=== PATIENT | female | born 1970 | race Caucasian/White ===

== ENCOUNTER 2018-04-21 09:04 | Outpatient (CLI) | payer MEDICARE, MEDICAID ==
[~2018-04-21 09:04] MED LIST: ATEN25TA PO; CLON-527 PO; CLOT15CR74 TP; DIPH-423 PO; FAMO-128 PO; LISI-600 PO
[2018-04-21] MEDS ORDERED: BARIUM SULFATE/METHYLCELLULOSE 600 ML SUSPENSION BOTTLE**DONT ENTER PO ONE (09:38)
== END 2018-04-21 23:59 | disposition home or self-care (01) ==
LOC: RAD 09:04
PROVIDERS: ATTEND Obstetrics & Gynecology Obstetrics
DX: K59.00 Constipation, unspecified (principal); F17.210 Nicotine dependence, cigarettes, uncomplicated; J45.909 Unspecified asthma, uncomplicated
CPT/HCPCS: 74250

== ENCOUNTER 2018-06-10 00:02 | Emergency (ER) | payer MEDICARE, MEDICAID ==
[~2018-06-10] VITALS: Ht 165.1 cm; Wt 113.6 kg
[2018-06-10] MEDS ORDERED: glucagon, human recombinant 1mg kit IV ONE (00:25)
[2018-06-10] MEDS ORDERED: famotidine/PF 10 mg/ml inj IV ONE (00:25)
[2018-06-10 00:51] LABS: HEMATOCRIT 38.7 % (35.0-45.0); HEMOGLOBIN 12.6 g/dl (12.0-16.0); RED BLOOD COUNT 5.33 X10'6 (4.20-5.60); WHITE BLOOD COUNT 9.8 X10'3 (4.5-11.0)
[2018-06-10 00:52] LABS: EOSINOPHILS % (AUTO) 4.6 % (0-6); LYMPHOCYTES % (AUTO) 23.8 % (21-51); MEAN CORPUSCULAR HEMOGLOBIN 23.6 PG (27.0-31.0); MEAN CORPUSCULAR HGB CONC 32.5 % (33.0-36.5); MEAN CORPUSCULAR VOLUME 72.6 FL (78-98); MEAN PLATELET VOLUME 9.6 FL (7.4-10.4); MONOCYTES % (AUTO) 7.4 % (2-12); NEUTROPHILS % (AUTO) 63.7 % (42-75); PLATELET COUNT 243 X10'3 (140-440)
[2018-06-10 00:53] LABS: BASOPHILS % (AUTO) 0.5 % (0-1); EOSINOPHILS # (AUTO) 0.5 X10'3 (0-0.9); LYMPHOCYTES # (AUTO) 2.3 X10'3 (1.1-4.8); MONOCYTES # (AUTO) 0.7 X10'3 (0-0.9); NEUTROPHILS # (AUTO) 6.3 X10'3 (1.8-7.7)
[2018-06-10 00:55] LABS: INR 0.9 INR; PARTIAL THROMBOPLASTIN TIME 27 SECONDS (22-32); PROTHROMBIN TIME 9.3 SECONDS (9.0-12.0)
[2018-06-10 00:57] LABS: ALANINE AMINOTRANSFERASE 38 U/L (12-78); ALBUMIN 3.2 G/DL (3.4-5.0); ALBUMIN/GLOBULIN RATIO 0.9 (1.1-1.5); ALKALINE PHOSPHATASE 98 IU/L (46-116); ANION GAP 9 (8-16); ASPARTATE AMINO TRANSFERASE 23 U/L (10-37); BILIRUBIN,TOTAL 0.1 MG/DL (0.1-1.0); BLOOD UREA NITROGEN 17 MG/DL (7-18); BUN/CREATININE RATIO 22.4 (6.6-38.0); CALCIUM 8.1 MG/DL (8.5-10.1); CHLORIDE 103 MMOL/L (99-107); CREATININE 0.76 MG/DL (0.40-0.90); GLUCOSE 180 MG/DL (70-104); POTASSIUM 3.9 MMOL/L (3.5-5.1); SODIUM 140 MMOL/L (135-145); TOTAL CARBON DIOXIDE 28.3 MMOL/L (24-32); TOTAL PROTEIN 6.8 G/DL (6.4-8.2); eGFR 81 ML/MIN
[2018-06-10 03:40] VITALS: BP 139/92
[2018-06-10] MEDS ORDERED: LIDOcaine Viscous 15ml cup ONE (03:49)
[2018-06-10] MEDS ORDERED: MIDAZolam 5mg/5ml vial ONE (03:49)
[2018-06-10] MEDS ORDERED: fentaNYL/PF 50MCG/1 ML 2ML syringe ONE (03:49)
[2018-06-10 04:12] VITALS: BP 127/64
[2018-06-10 04:22] VITALS: BP 112/59
[2018-06-10 04:32] VITALS: BP 138/79
[2018-06-10 04:42] VITALS: BP 151/84
[2018-06-10 05:26] VITALS: BP 148/94
== END 2018-06-10 05:28 | disposition home or self-care (01) ==
LOC: ER 00:02
DX: T18.128A Food in esophagus causing other injury, initial encounter (principal); I10 Essential (primary) hypertension; J45.909 Unspecified asthma, uncomplicated; G89.29 Other chronic pain; Z90.49 Acquired absence of other specified parts of digestive tract; Z98.890 Other specified postprocedural states; Z88.1 Allergy status to other antibiotic agents; Z79.899 Other long term (current) drug therapy; Y92.9 Unspecified place or not applicable
CPT/HCPCS: 36415; 43239; 43247; 43248; 71045; 80053; 85025; 85610; 85730; 93005; 96374; 96375; 99152; 99285; J1610; J2250; J3010; J3490; J7030; 88305; A4620

== ENCOUNTER 2019-02-21 11:58 | Emergency (ER) | payer MEDICARE, MEDICAID ==
[~2019-02-21] VITALS: Ht 165.1 cm; Wt 104.5 kg
[2019-02-21 12:00] VITALS: BP 175/90
== END 2019-02-21 13:59 | disposition home or self-care (01) ==
LOC: ER 11:58
DX: M79.89 Other specified soft tissue disorders (principal); Z46.89 Encounter for fitting and adjustment of other specified devices; I10 Essential (primary) hypertension; J45.909 Unspecified asthma, uncomplicated; F41.9 Anxiety disorder, unspecified; Z86.14 Personal history of Methicillin resistant Staphylococcus aureus infection; Z90.49 Acquired absence of other specified parts of digestive tract; Z98.890 Other specified postprocedural states; Z79.899 Other long term (current) drug therapy
CPT/HCPCS: 99281

== ENCOUNTER 2019-09-03 18:32 | Emergency (ER) | payer MEDICARE, MEDICAID ==
[~2019-09-03] VITALS: Ht 165.1 cm; Wt 125.0 kg
[2019-09-03 20:08] LABS: BASOPHILS % (AUTO) 0.5 % (0-1); EOSINOPHILS # (AUTO) 0.4 X10'3 (0-0.9); EOSINOPHILS % (AUTO) 3.9 % (0-6); HEMOGLOBIN 14.4 g/dl (12.0-16.0); LYMPHOCYTES # (AUTO) 1.4 X10'3 (1.1-4.8); LYMPHOCYTES % (AUTO) 15.6 % (21-51); MEAN CORPUSCULAR HGB CONC 33.4 g/dL (33.0-36.5); MEAN CORPUSCULAR VOLUME 80.9 FL (78-98); MEAN PLATELET VOLUME 9.1 FL (7.4-10.4); MONOCYTES # (AUTO) 0.6 X10'3 (0-0.9); MONOCYTES % (AUTO) 6.7 % (2-12); NEUTROPHILS # (AUTO) 6.7 X10'3 (1.8-7.7); NEUTROPHILS % (AUTO) 73.3 % (42-75); PLATELET COUNT 195 X10'3 (140-440); RED BLOOD COUNT 5.32 X10'6 (4.20-5.60); RED CELL DISTRIBUTION WIDTH 14.7 % (11.5-14.5); WHITE BLOOD COUNT 9.1 X10'3 (4.5-11.0)
[2019-09-03 20:11] LABS: ALANINE AMINOTRANSFERASE 88 U/L (12-78); ALBUMIN 3.2 G/DL (3.4-5.0); ALKALINE PHOSPHATASE 106 IU/L (46-116); ANION GAP 5 (8-16); ASPARTATE AMINO TRANSFERASE 45 U/L (10-37); BILIRUBIN,TOTAL 0.3 MG/DL (0.1-1.0); BLOOD UREA NITROGEN 19 MG/DL (7-18); BUN/CREATININE RATIO 21.3 (6.6-38.0); CALCIUM 8.7 MG/DL (8.5-10.1); CHLORIDE 109 MMOL/L (99-107); CREATININE 0.89 MG/DL (0.40-0.90); GLUCOSE 147 MG/DL (70-104); POTASSIUM 3.9 MMOL/L (3.5-5.1); SODIUM 144 MMOL/L (135-145); TOTAL CARBON DIOXIDE 29.9 MMOL/L (24-32); TOTAL PROTEIN 6.5 G/DL (6.4-8.2); eGFR 67 ML/MIN
[2019-09-03 20:49] VITALS: BP 143/87
== END 2019-09-03 20:50 | disposition home or self-care (01) ==
LOC: ER 18:33
DX: R07.9 Chest pain, unspecified (principal); R06.02 Shortness of breath; R42 Dizziness and giddiness; I10 Essential (primary) hypertension; J45.909 Unspecified asthma, uncomplicated; F41.9 Anxiety disorder, unspecified; Z90.89 Acquired absence of other organs; Z98.890 Other specified postprocedural states; Z79.2 Long term (current) use of antibiotics; Z79.899 Other long term (current) drug therapy
CPT/HCPCS: 36415; 71045; 80053; 84484; 85025; 93005; 99285

== ENCOUNTER 2021-05-14 15:47 | Emergency (ER) | payer MEDICARE, MEDICAID ==
[~2021-05-14] VITALS: Ht 165.1 cm; Wt 128.4 kg
[~2021-05-14 15:47] MED LIST changes: -LISI-600 PO; +LISI20TA28 PO
[2021-05-14 16:55] VITALS: BP 195/80
[2021-05-14 17:28] LABS: BASOPHILS % (AUTO) 0.5 % (0-1); EOSINOPHILS # (AUTO) 0.5 X10'3 (0-0.9); EOSINOPHILS % (AUTO) 5.8 % (0-6); HEMATOCRIT 43.1 % (35.0-45.0); HEMOGLOBIN 14.5 g/dl (12.0-16.0); LYMPHOCYTES % (AUTO) 22.3 % (21-51); MEAN CORPUSCULAR HEMOGLOBIN 26.8 PG (27.0-31.0); MEAN CORPUSCULAR HGB CONC 33.5 g/dL (33.0-36.5); MEAN CORPUSCULAR VOLUME 79.9 FL (78-98); MEAN PLATELET VOLUME 8.6 FL (7.4-10.4); MONOCYTES # (AUTO) 0.6 X10'3 (0-0.9); MONOCYTES % (AUTO) 6.6 % (2-12); NEUTROPHILS # (AUTO) 5.7 X10'3 (1.8-7.7); NEUTROPHILS % (AUTO) 64.8 % (42-75); PLATELET COUNT 216 X10'3 (140-440); RED CELL DISTRIBUTION WIDTH 15.2 % (11.5-14.5); WHITE BLOOD COUNT 8.8 X10'3 (4.5-11.0)
[2021-05-14 17:39] LABS: ALANINE AMINOTRANSFERASE 130 U/L (12-78); ALBUMIN 3.4 G/DL (3.4-5.0); ALBUMIN/GLOBULIN RATIO 0.9 (1.1-1.5); ALKALINE PHOSPHATASE 92 IU/L (46-116); ANION GAP 10 (8-16); ASPARTATE AMINO TRANSFERASE 54 U/L (10-37); BILIRUBIN,TOTAL 0.3 MG/DL (0.1-1.0); BLOOD UREA NITROGEN 11 MG/DL (7-18); BUN/CREATININE RATIO 15.3 (6.6-38.0); CALCIUM 8.6 MG/DL (8.5-10.1); CHLORIDE 104 MMOL/L (99-107); CREATININE 0.72 MG/DL (0.40-0.90); GLUCOSE 120 MG/DL (70-104); POTASSIUM 4.1 MMOL/L (3.5-5.1); SODIUM 142 MMOL/L (135-145); TOTAL CARBON DIOXIDE 27.6 MMOL/L (24-32); TOTAL PROTEIN 7.2 G/DL (6.4-8.2); eGFR 85 ML/MIN
== END 2021-05-14 22:00 | disposition left against medical advice (07) ==
LOC: ER 15:48
DX: I10 Essential (primary) hypertension (principal); R42 Dizziness and giddiness; R07.89 Other chest pain; R51.9 Headache, unspecified; J45.909 Unspecified asthma, uncomplicated; G89.29 Other chronic pain; F41.9 Anxiety disorder, unspecified; Z86.14 Personal history of Methicillin resistant Staphylococcus aureus infection; Z90.89 Acquired absence of other organs; Z98.890 Other specified postprocedural states; Z88.1 Allergy status to other antibiotic agents; Z79.2 Long term (current) use of antibiotics; Z79.899 Other long term (current) drug therapy
CPT/HCPCS: 36415; 71045; 80053; 83880; 84484; 85025; 93005; 99285

== ENCOUNTER 2022-06-17 03:11 | Emergency (ER) | payer MEDICARE, MEDICAID ==
[~2022-06-17] VITALS: Ht 165.1 cm; Wt 88.6 kg
[2022-06-17 03:25] VITALS: BP 162/105
[2022-06-17 03:46] LABS: BASOPHILS % (AUTO) 0.3 % (0-1); EOSINOPHILS % (AUTO) 0 % (0-6); HEMATOCRIT 50.8 % (35.0-45.0); HEMOGLOBIN 16.3 g/dl (12.0-16.0); LYMPHOCYTES # (AUTO) 0.5 X10'3 (1.1-4.8); LYMPHOCYTES % (AUTO) 9.7 % (21-51); MEAN CORPUSCULAR HEMOGLOBIN 26.6 PG (27.0-31.0); MEAN CORPUSCULAR HGB CONC 32.2 g/dL (33.0-36.5); MEAN CORPUSCULAR VOLUME 82.6 FL (78-98); MEAN PLATELET VOLUME 10.4 FL (7.4-10.4); MONOCYTES # (AUTO) 0.1 X10'3 (0-0.9); MONOCYTES % (AUTO) 2.4 % (2-12); NEUTROPHILS # (AUTO) 4.1 X10'3 (1.8-7.7); NEUTROPHILS % (AUTO) 87.6 % (42-75); PLATELET COUNT 166 X10'3 (140-440); RED BLOOD COUNT 6.14 X10'6 (4.20-5.60); RED CELL DISTRIBUTION WIDTH 15.2 % (11.5-14.5); WHITE BLOOD COUNT 4.7 X10'3 (4.5-11.0)
[2022-06-17 03:59] LABS: ALANINE AMINOTRANSFERASE 28 U/L (12-78); ALBUMIN 3.9 G/DL (3.4-5.0); ALKALINE PHOSPHATASE 96 IU/L (46-116); ANION GAP 13 (8-16); ASPARTATE AMINO TRANSFERASE 19 U/L (10-37); BILIRUBIN,TOTAL 0.4 MG/DL (0.1-1.0); BLOOD UREA NITROGEN 8 MG/DL (7-18); CALCIUM 9.4 MG/DL (8.5-10.1); CHLORIDE 103 MMOL/L (99-107); CREATININE 0.73 MG/DL (0.40-0.90); GLUCOSE 167 MG/DL (70-104); MAGNESIUM 1.9 MG/DL (1.5-2.4); POTASSIUM 3.9 MMOL/L (3.5-5.1); SODIUM 141 MMOL/L (135-145); TOTAL CARBON DIOXIDE 24.8 MMOL/L (24-32); TOTAL PROTEIN 7.8 G/DL (6.4-8.2); eGFR 84 ML/MIN
[2022-06-17] MEDS ORDERED: benzonatate 100mg capsule PO ONE (04:40)
[2022-06-17] MEDS ORDERED: ketorolac trometh inj. 60 MG/2 ML VIAL IM ONE (04:40)
[2022-06-17] MEDS ORDERED: ondansetron 4mg rapidly disintigrating tab PO ONE (04:40)
[2022-06-17] MEDS ORDERED: GUAI120L55 PO (05:17)
[2022-06-17] MEDS ORDERED: BENZ-38 PO (05:17)
== END 2022-06-17 05:31 | disposition home or self-care (01) ==
LOC: ER 03:12
DX: B34.9 Viral infection, unspecified (principal); Z20.822 Contact with and (suspected) exposure to COVID-19; I10 Essential (primary) hypertension; J45.909 Unspecified asthma, uncomplicated; G89.29 Other chronic pain; Z91.041 Radiographic dye allergy status
CPT/HCPCS: 36415; 71045; 80053; 83735; 83880; 84484; 85025; 87502; 87503; 87635; 93005; 96372; 99285; C9803; J1885

== ENCOUNTER 2022-09-24 15:54 | Emergency (ER) | payer MEDICARE, MEDICAID ==
[~2022-09-24] VITALS: Ht 165.1 cm; Wt 83.0 kg
[~2022-09-24 15:54] MED LIST changes: +GUAI120L55 PO
[2022-09-24 16:55] LABS: BASOPHILS # (AUTO) 0.1 X10'3 (0-0.2); BASOPHILS % (AUTO) 0.6 % (0-1); EOSINOPHILS # (AUTO) 0.3 X10'3 (0-0.9); EOSINOPHILS % (AUTO) 3.4 % (0-6); HEMATOCRIT 49.8 % (35.0-45.0); HEMOGLOBIN 16.7 g/dl (12.0-16.0); LYMPHOCYTES % (AUTO) 33.3 % (21-51); MEAN CORPUSCULAR HEMOGLOBIN 28.8 PG (27.0-31.0); MEAN CORPUSCULAR HGB CONC 33.6 g/dL (33.0-36.5); MEAN CORPUSCULAR VOLUME 85.6 FL (78-98); MEAN PLATELET VOLUME 8.9 FL (7.4-10.4); MONOCYTES # (AUTO) 0.6 X10'3 (0-0.9); MONOCYTES % (AUTO) 6.7 % (2-12); NEUTROPHILS # (AUTO) 5.1 X10'3 (1.8-7.7); PLATELET COUNT 201 X10'3 (140-440); RED BLOOD COUNT 5.81 X10'6 (4.20-5.60); RED CELL DISTRIBUTION WIDTH 15.1 % (11.5-14.5); WHITE BLOOD COUNT 9.2 X10'3 (4.5-11.0)
[2022-09-24 17:15] LABS: ALANINE AMINOTRANSFERASE 79 U/L (12-78); ALBUMIN 3.5 G/DL (3.4-5.0); ALKALINE PHOSPHATASE 106 IU/L (46-116); ANION GAP 12 (8-16); ASPARTATE AMINO TRANSFERASE 76 U/L (10-37); BILIRUBIN,TOTAL 0.4 MG/DL (0.1-1.0); BLOOD UREA NITROGEN 12 MG/DL (7-18); BUN/CREATININE RATIO 21.4 (10.0-20.0); CALCIUM 8.7 MG/DL (8.5-10.1); CHLORIDE 107 MMOL/L (99-107); CREATININE 0.56 MG/DL (0.40-0.90); ETHANOL 0.196 GM/DL (0.0-0.010); GLUCOSE 92 MG/DL (70-104); POTASSIUM 3.4 MMOL/L (3.5-5.1); SODIUM 144 MMOL/L (135-145); TOTAL CARBON DIOXIDE 25.2 MMOL/L (24-32); eGFR > 90 ML/MIN
[2022-09-24] MEDS ORDERED: ondansetron 4mg rapidly disintigrating tab PO ONE (19:40)
[2022-09-24 20:14] LABS: URINE HCG NEGATIVE (NEG)
[2022-09-24 20:15] LABS: CLARITY,URINE CLEAR (Clear); COLOR,URINE YELLOW (Yellow); GLUCOSE, URINE NEGATIVE (Neg); KETONES,URINE NEGATIVE (Neg); LEUKOCYTE ESTERASE ,URINE NEGATIVE (Neg); NITRITES, URINE NEGATIVE (Neg); OCCULT BLOOD,URINE NEGATIVE (Neg); PH,URINE 5.5 (4.8-8.0); PROTEIN,URINE NEGATIVE (Neg); UROBILINOGEN,URINE 0.2 E.U/dL (0.2-1.0)
[2022-09-24 20:23] LABS: UA COLLECTION TYPE CLN CATCH MIDSTREAM
[2022-09-24] MEDS ORDERED: LORazepam 2 mg/ml vial IM ONE (20:45)
[2022-09-24] MEDS ORDERED: haloperidol lactate 5mg/ml inj IM ONE (20:45)
[2022-09-24] MEDS ORDERED: diphenhydrAMINE 50 mg/ml inj IM ONE (20:45)
--- NOTE | 2022-09-24 20:45 | NUR ---
pt tried to leave er dept. pt escorted back to room by staff. informed
[2022-09-24 20:48] LABS: URINE AMPHETAMINE SCREEN NEGATIVE (Neg); URINE BARBITUATE SCREEN NEGATIVE (Neg); URINE BENZODIAZEPINES SCREEN POSITIVE (Neg); URINE CANNABINOID SCREEN POSITIVE (Neg); URINE COCAINE SCREEN NEGATIVE (Neg); URINE METHADONE SCREEN NEGATIVE (Neg); URINE OPIATE SCREEN NEGATIVE (Neg); URINE PHENCYCLIDINE SCREEN NEGATIVE (Neg)
--- NOTE | 2022-09-24 21:25 | NUR ---
im given. pt stated she will stay and listen to staff and md.
--- NOTE | 2022-09-24 22:19 | NUR ---
Received report from Melecio JUÁREZ. Patient coming back to ED overflow.
--- NOTE | 2022-09-24 22:35 | NUR ---
Patient arrived to bed-25 at this time. Collected patient belongings and placed in secured locker.
[2022-09-24] MEDS ORDERED: ALPR2TAB2 PO (22:46)
[2022-09-24] MEDS ORDERED: ALPR2TAB7 PO (22:47)
[2022-09-24] MEDS ORDERED: ALPRAZolam 0.5mg tablet PO PRN (23:00)
[2022-09-25 05:50] VITALS: BP 143/72
--- NOTE | 2022-09-25 06:03 | NUR ---
records to [facility]
--- NOTE | 2022-09-25 06:30 | NUR ---
Received pt resting on her back, heart rate rechecked and was 56. No acute distress.
--- NOTE | 2022-09-25 09:02 | NUR ---
Pt resting with eyes closed on backside, noted rise and fall of chest.
--- NOTE | 2022-09-25 10:40 | NUR ---
Dequan MORALEZ, evaluating patient. No distress observed. Continue to monitor.
--- NOTE | 2022-09-25 11:16 | NUR ---
Met with patient in regards to alcohol use and to see if patient was interested in resources for treatment options. Patient is interested. Patient would like to start meds to help with cravings. I gave patient a card for [facility] and my card to call me if she has any questions.
--- NOTE | 2022-09-25 12:14 | NUR ---
PRN xanax administered at 1115am for c/o anxiety. Pt resting with eyes closed, noted rise and fall of chest.
== END 2022-09-25 13:13 | disposition home or self-care (01) ==
LOC: ER 15:56
DX: R45.851 Suicidal ideations (principal); Z20.822 Contact with and (suspected) exposure to COVID-19; F10.929 Alcohol use, unspecified with intoxication, unspecified; I10 Essential (primary) hypertension; J45.909 Unspecified asthma, uncomplicated; F41.9 Anxiety disorder, unspecified; Z86.14 Personal history of Methicillin resistant Staphylococcus aureus infection; Z88.1 Allergy status to other antibiotic agents; Z79.899 Other long term (current) drug therapy; Z79.1 Long term (current) use of non-steroidal anti-inflammatories (NSAID); Z79.2 Long term (current) use of antibiotics
CPT/HCPCS: 36415; 80053; 80305; 80320; 81003; 81025; 85025; 87811; 96372; 99285; J1200; J1630; J2060

== ENCOUNTER 2022-10-14 11:10 | Emergency (ER) | payer MEDICARE, MEDICAID ==
[~2022-10-14] VITALS: Ht 163.8 cm; Wt 187.0 kg
[~2022-10-14 11:10] MED LIST changes: +ALPR2TAB7 PO; -ATEN25TA PO; -CLON-527 PO; -CLOT15CR74 TP; -DIPH-423 PO; -FAMO-128 PO; -GUAI120L55 PO; -LISI20TA28 PO
[2022-10-14] MEDS ORDERED: LORazepam 1 MG tablet PO ONE (11:20)
[2022-10-14 11:44] LABS: BASOPHILS % (AUTO) 0.6 % (0-1); EOSINOPHILS # (AUTO) 0.3 X10'3 (0-0.9); EOSINOPHILS % (AUTO) 3.9 % (0-6); HEMATOCRIT 46.3 % (35.0-45.0); HEMOGLOBIN 15.5 g/dl (12.0-16.0); LYMPHOCYTES # (AUTO) 1.7 X10'3 (1.1-4.8); LYMPHOCYTES % (AUTO) 21.9 % (21-51); MEAN CORPUSCULAR HEMOGLOBIN 28.8 PG (27.0-31.0); MEAN CORPUSCULAR HGB CONC 33.5 g/dL (33.0-36.5); MEAN CORPUSCULAR VOLUME 85.8 FL (78-98); MEAN PLATELET VOLUME 8.3 FL (7.4-10.4); MONOCYTES # (AUTO) 0.6 X10'3 (0-0.9); MONOCYTES % (AUTO) 7.4 % (2-12); NEUTROPHILS # (AUTO) 5.2 X10'3 (1.8-7.7); NEUTROPHILS % (AUTO) 66.2 % (42-75); PLATELET COUNT 184 X10'3 (140-440); RED BLOOD COUNT 5.39 X10'6 (4.20-5.60); RED CELL DISTRIBUTION WIDTH 15.9 % (11.5-14.5); WHITE BLOOD COUNT 7.9 X10'3 (4.5-11.0)
[2022-10-14 11:59] LABS: ALANINE AMINOTRANSFERASE 51 U/L (12-78); ALBUMIN 3.2 G/DL (3.4-5.0); ALKALINE PHOSPHATASE 99 IU/L (46-116); ANION GAP 10 (8-16); ASPARTATE AMINO TRANSFERASE 41 U/L (10-37); BILIRUBIN,TOTAL 0.6 MG/DL (0.1-1.0); BLOOD UREA NITROGEN 19 MG/DL (7-18); BUN/CREATININE RATIO 30.2 (10.0-20.0); CALCIUM 8.5 MG/DL (8.5-10.1); CHLORIDE 104 MMOL/L (99-107); CREATININE 0.63 MG/DL (0.40-0.90); GLUCOSE 109 MG/DL (70-104); POTASSIUM 4.1 MMOL/L (3.5-5.1); SODIUM 142 MMOL/L (135-145); TOTAL CARBON DIOXIDE 28.3 MMOL/L (24-32); TOTAL PROTEIN 6.5 G/DL (6.4-8.2); eGFR > 90 ML/MIN
[2022-10-14 12:13] VITALS: BP 160/74
[2022-10-14] MEDS ORDERED: CITA20TA28 PO (13:38)
[2022-10-14] MEDS ORDERED: CHLO25CA10 PO (13:38)
--- NOTE | 2022-10-14 13:52 | NUR ---
Received order for consult. Met with patient in regards to alcohol use and to see if patient was interested in resources for treatment options. Patient is interested in medication to help her with withdrawls and with cravings. Dr Hall is giving patient meds to help with withdrawls and I gave her a card for [facility] for meds for cravings. I gave her my card to contact me with any questions.
== END 2022-10-14 14:01 | disposition home or self-care (01) ==
LOC: ER 11:11
DX: R07.89 Other chest pain (principal); I10 Essential (primary) hypertension; J45.909 Unspecified asthma, uncomplicated; G89.29 Other chronic pain; F10.239 Alcohol dependence with withdrawal, unspecified; F41.9 Anxiety disorder, unspecified; F32.9 Major depressive disorder, single episode, unspecified; Z86.14 Personal history of Methicillin resistant Staphylococcus aureus infection; Z90.89 Acquired absence of other organs; Z98.890 Other specified postprocedural states; Z72.89 Other problems related to lifestyle; Z88.1 Allergy status to other antibiotic agents; Z79.899 Other long term (current) drug therapy; Y90.0 Blood alcohol level of less than 20 mg/100 ml
CPT/HCPCS: 36415; 80053; 83880; 84484; 85025; 93005; 99284

== ENCOUNTER 2022-10-21 12:20 | Emergency (ER) | payer MEDICARE, MEDICAID ==
[~2022-10-21 12:20] MED LIST changes: +CHLO25CA10 PO; +CITA20TA28 PO
--- NOTE | 2022-10-22 11:17 | NUR ---
Met with patient in the lobby after she talked to Jessica'isabel Quick. Patient already had medications prescribed by Dr Hall so she decided to go home and continue her alcohol withdrawal there and if she is having a hard time she will come back. Patient has an appt set with Jason Quick to start Naltrexone after detox.
== END 2022-10-21 13:34 | disposition left against medical advice (07) ==
LOC: ER 12:21
DX: F10.239 Alcohol dependence with withdrawal, unspecified (principal); Z53.21 Procedure and treatment not carried out due to patient leaving prior to being seen by health care provider; Y90.9 Presence of alcohol in blood, level not specified

== ENCOUNTER 2022-11-14 16:10 | Emergency (ER) | payer MEDICARE, MEDICAID | END 2022-11-14 18:51 | disposition left against medical advice (07) | LOC: ER 16:11 | DX: F10.129 Alcohol abuse with intoxication, unspecified (principal); Z53.21 Procedure and treatment not carried out due to patient leaving prior to being seen by health care provider; Y90.9 Presence of alcohol in blood, level not specified ==

== ENCOUNTER 2022-11-17 17:40 | Emergency (ER) | payer MEDICARE, MEDICAID ==
[~2022-11-17] VITALS: Ht 163.8 cm; Wt 86.8 kg
[~2022-11-17 17:40] MED LIST changes: -CITA20TA28 PO
[2022-11-17 17:48] VITALS: BP 139/67
[2022-11-17] MEDS ORDERED: ONDA4TAB12 PO (20:42)
[2022-11-17] MEDS ORDERED: GABA300C PO (20:42)
[2022-11-17] MEDS ORDERED: ondansetron 4mg rapidly disintigrating tab PO ONE (20:45)
--- NOTE | 2022-11-18 07:53 | NUR ---
Received order for consult. Tried to call patient to follow up. No answer and voicemail full.
== END 2022-11-17 20:54 | disposition home or self-care (01) ==
LOC: ER 17:41
DX: F10.129 Alcohol abuse with intoxication, unspecified (principal); I10 Essential (primary) hypertension; J45.909 Unspecified asthma, uncomplicated; F41.9 Anxiety disorder, unspecified; Z86.14 Personal history of Methicillin resistant Staphylococcus aureus infection; Z88.1 Allergy status to other antibiotic agents; Z79.899 Other long term (current) drug therapy; Y90.9 Presence of alcohol in blood, level not specified
CPT/HCPCS: 99283

== ENCOUNTER 2022-12-06 13:33 | Emergency (ER) | payer MEDICARE, MEDICAID ==
[~2022-12-06] VITALS: Ht 170.2 cm; Wt 88.2 kg
[~2022-12-06 13:33] MED LIST changes: +GABA300C PO; +ONDA4TAB12 PO
[2022-12-06 13:42] VITALS: BP 132/80
[2022-12-06] MEDS ORDERED: ONDA4TAB12 PO (13:51)
[2022-12-06] MEDS ORDERED: GABA300C PO (13:51)
--- NOTE | 2022-12-06 14:08 | NUR ---
Met with patient in regards to medical clearance for [place]. I talked to Lianne Irene to see patient. Patient will follow up with me and let me know how she is doing.
== END 2022-12-06 14:04 | disposition home or self-care (01) ==
LOC: ER 13:33
DX: F10.930 Alcohol use, unspecified with withdrawal, uncomplicated (principal); I10 Essential (primary) hypertension; F41.9 Anxiety disorder, unspecified; Z86.14 Personal history of Methicillin resistant Staphylococcus aureus infection; Z90.49 Acquired absence of other specified parts of digestive tract; Z88.1 Allergy status to other antibiotic agents; Z79.899 Other long term (current) drug therapy; Y90.9 Presence of alcohol in blood, level not specified
CPT/HCPCS: 99283; 99285

== ENCOUNTER 2023-03-03 13:30 | Emergency (ER) | payer MEDICARE, MEDICAID ==
[~2023-03-03] VITALS: Ht 162.6 cm; Wt 95.6 kg
[2023-03-03 13:31] VITALS: BP 146/75; PULSE 88; RESP 16; TEMP 98.1; O2SAT 95
== END 2023-03-03 16:32 | disposition home or self-care (01) ==
LOC: ER 13:30
DX: F10.129 Alcohol abuse with intoxication, unspecified (principal); Z00.8 Encounter for other general examination; Y90.9 Presence of alcohol in blood, level not specified
CPT/HCPCS: 99281

== ENCOUNTER 2025-01-29 00:44 | Emergency (ER) | payer MEDICARE, MEDICAID ==
[~2025-01-29] VITALS: Ht 162.6 cm; Wt 70.5 kg
[~2025-01-29 00:44] MED LIST changes: +ONDA-243 PO; -ONDA4TAB12 PO
--- NOTE | 2025-01-29 00:51 | ELECTROCARDIOGRAPH REPORT ---
[facility] Test Date: 2025-01-29 Test Time: 00:46:16 Pat Name: YOLANDA RINALDI Department: EMERGENCY ROOM Patient ID: [facility]-[id number] Room: Gender: F Banquet Cook: REYES : 1970 Requested By: RADAMES FLOOD Order Number: [id number] Reading MD: Dr. Radames Flood Measurements Intervals [place] Rate: 82 P: 85 [place]: 131 QRS: 38 QRSD: 93 T: 17 QT: 382 QTc: 446 Interpretive Statements Sinus rhythm Left atrial enlargement Baseline wander in lead(s) V2 Electronically Signed On 01-29-2025 0:53:[address] Radames Flood Please click the below link to view image of tracing.
[2025-01-29 01:12] LABS: MEAN PLATELET VOLUME 9.6 FL (7.4-10.4); RED CELL DISTRIBUTION WIDTH 13.4 % (11.5-14.5)
--- NOTE | 2025-01-29 01:13 | RADIOLOGY REPORT ---
CHEST RADIOGRAPH Indication: CP Technique: Single frontal view of the chest was obtained Comparison: CHEST,SINGLE VIEW on DOS: 06/17/22, CHEST,SINGLE VIEW on DOS: 05/14/21 FINDINGS: Lines and Tubes: None Lungs: No focal consolidation. Pleura: No effusion or pneumothorax. Cardiomediastinal contours: Unremarkable Bones: No acute osseous abnormality. IMPRESSION: 1. No acute cardiopulmonary disease.
[2025-01-29 01:38] LABS: CREATININE 0.75 MG/DL (0.40-0.90); PRO BRAIN NATRIURETIC PEPTIDE 149 PG/ML (0-125); TOTAL CARBON DIOXIDE 25.5 MMOL/L (24-32); eCRCL 73 ML/MIN; eGFR 80 ML/MIN
--- NOTE | 2025-01-29 02:46 | Physician Documentation ---
History of Present Illness ~ Chief Complaint: Chest Pain Stated Complaint: CHEST PAIN Time Seen by MD: 02:32 OK to notify your PCP?: Yes Primary Medical Doctor: yovanny castro Source: patient, RN/MD, EMS, RN notes reviewed, EMS notes reviewed, old records Mode of Arrival: EMS Exam Limitations: no limitations HPI 54 year old female with history of GERD, gastric sleeve, anxiety, and angina seen in bed 11 presents to the emergency department via EMS complaining of chest pressure that began tonight at 2200. Patient states that tonight she had taco chacon and thirty minutes after she states that she began having bad chest pain. She states that her chest pressure radiates to her left shoulder. Patient took 3 Nitro at home to help with pain to no avail. When asked patient states she has been feeling fatigued lately. She denies excessive shortness of breath following exertion. Medication Reconciliation Allergies: Coded Allergies: erythromycin base (Verified Adverse Reaction, Mild, NAUSEA/VOMITING, 11/17/22) Scheduled Chlordiazepoxide HCl (Chlordiazepoxide HCl), 2 CAP PO Q2H Gabapentin (Neurontin), 1 CAP PO Q6H Gabapentin (Neurontin), 1 CAP PO Q8H ONDANSETRON ODT 4mg tablet (Ondansetron Odt), 1 TABLET PO Q6H Scheduled PRN Alprazolam (Alprazolam), 1 TAB PO TID PRN for anxiety, (Reported) ONDANSETRON ODT 4mg tablet (Ondansetron Odt), 1 TABLET PO Q6H PRN for nausea/vomiting Past Medical History Past Medical History: Hypertension, Asthma, Bronchitis, GERD, Chronic Pain, MRSA Abscess, Anxiety Past Surgical History: abdominal surgery, appendectomy, , gastric bypass Other Past Surgical History: cervical fusion Other Past Family History: NONCONTRIBUTORY Alcohol Use: Heavy Drug Use: none Lives with: Family Lives In: Home Review of Systems All Other Systems at this time: Reviewed and Negative ROS As stated above in the HPI, otherwise all systems are reviewed and negative. Physical Exam Vital Signs: RN Vital Signs have been reviewed: Yes, Heart Rate: 89, Respiratory Rate: 17, BP: 102/67, Pulse Oximetry: 96, Weight: 70.450 Oxygen Flow Rate: 0 Pulse Oximetry Reflects: adequate oxygenation Physical Exam General: Anxious. The patient is well developed, well nourished, nontoxic appearing and is in no acute distress. Skin: [place], warm and dry with no rashes. HEENT: Head was normocephalic and atraumatic. Eyes - pupils equal, round, reactive to light and accommodation. Extraocular movements were intact. Conjunctivae were nonicteric. Ears - bilateral tympanic membranes were normal. The mouth and oropharynx were clear with moist mucous membranes. There were no pharyngeal exudates or erythema. Neck: Supple and nontender. There was no jugular venous distention, lymphadenopathy, thyromegaly or masses. Chest: Clear to auscultation bilaterally without wheezes, rales or rhonchi. No accessory muscle use. No dullness to percussion. Heart: Rate regular and rhythmic. S1, S2. No murmurs. Palpation of the chest wall was normal. No rubs or thrills. Abdomen: Reproducible epigastric pain. Soft, nontender and nondistended. Positive bowel sounds. No guarding or rebound. No hepatosplenomegaly or palpable masses. Extremities: No cyanosis, clubbing or edema. The patient moves all extremities. Pulses were equal and symmetric. Neurologic: Cranial nerves II-XII were intact. Sensation was intact to light touch throughout. Motor strength was 5/5 in all four extremities. Deep tendon reflexes were intact in both upper and lower extremities. Psychologic: The patient was oriented to person, place and time. The patient demonstrated appropriate judgement and insight. Progress Results/Orders Reviewed/noted all lab results: Yes Results/Orders Orders - ROCKY LEPE MD Chest,Single View (01/29/25 00:58) Monitor (01/29/25 00:49) Saline Lock (01/29/25 00:49) Oxygen (01/29/25 00:49) Electrocardiogram (01/29/25 00:49) Hs Troponin I W Calculations (01/29/25 03:49) Completed Orders - ROCKY LEPE MD Chest,Single View (01/29/25 00:58) Cbc/Diff (01/29/25 00:49) BMP (01/29/25 00:49) PBNP (01/29/25 00:49) Electrocardiogram (01/29/25 00:49) Hs Troponin I W Calculations (8/2/25 00:49) Hs Troponin I W Calculations (01/29/25 02:49) Mag & Alum Hydrox/Simeth Susp (Maalox Or (01/29/25 02:35) Lidocaine 2% Viscous (Xylocaine 2% Visco (01/29/25 02:35) Pantoprazole 40mg Iv (Protonix 40mg Iv) (01/29/25 02:35) Liver Panel (01/29/25 00:50) Normal Saline 1000ml (0.9% Sodium Chlori (01/29/25 03:35) Vital Signs 01/29/25 01/29/25 01/29/25 01/29/25 00:45 02:27 03:23 03:50 Temp 97.8 Pulse 89 66 Resp 15 17 16 B/P (MAP) 102/67 104/62 (76) Pulse Ox 96 100 O2 Flow Rate 0 0 Laboratory Tests Test 01/29/25 00:50 01/29/25 02:40 White Blood Count 8.0 Red Blood Count 4.96 Hemoglobin 14.0 Hematocrit 41.8 Mean Corpuscular Volume 84.3 Mean Corpuscular Hemoglobin 28.3 Mean Corpuscular Hemoglobin Concent 33.5 Red Cell Distribution Width 13.4 Platelet Count 185 Mean Platelet Volume 9.6 Neutrophils (%) (Auto) 62.3 Lymphocytes (%) (Auto) 26.6 Monocytes (%) (Auto) 7.5 Eosinophils (%) (Auto) 3.0 Basophils (%) (Auto) 0.6 Neutrophils # (Auto) 5.0 Lymphocytes # (Auto) 2.1 Monocytes # (Auto) 0.6 Eosinophils # (Auto) 0.2 Basophils # (Auto) 0.0 CBC Comment Sodium Level 143 Potassium Level 3.6 Chloride Level 109 H Carbon Dioxide Level 25.5 Anion Gap 9 Blood Urea Nitrogen 25 H Creatinine 0.75 Estimated GFR/1.73 m2 80 BUN/Creatinine Ratio 33.3 H Glucose Level 99 Calcium Level 8.5 Total Bilirubin 0.3 Direct Bilirubin < 0.1 Aspartate Amino Transf (AST/SGOT) 17 Alanine Aminotransferase (ALT/SGPT) 20 Alkaline Phosphatase 69 Troponin I High Sensitivity 5 4 Pro-B-Type Natriuretic Peptide 149 H Total Protein 6.4 Albumin 3.6 Globulin 2.8 Albumin/Globulin Ratio 1.3 Chemistry Comments Troponin I High Sens Percent Delta 20 Troponin I Hi Sens Absolute Change -1 Re-Evaluation Re-Evaluation : Re-Evaluation: Improved Progress Patient was seen and examined. Patient was given reassurance. Patient denied any significant cardiac history. Patient just ate some [place] food. Started having heartburn that is radiating along the esophagus. Denies any shortness of breath dizziness. No palpitations. Patient received a GI cocktail and immediately started feeling much better also Protonix was given. Fluids finally were infused. Laboratory work shows a normal chemistry and normal CBC. No anemia no leukocytosis. LFTs were also within normal limits 2- troponins. Patient was borderline dehydrated with a BUN creatinine ratio of 33.3. Cardiac etiologies were considered, arrhythmias, electrolyte abnormalities as well as abdominal etiologies however patient seemed to be having a bad case of heartburn. Continuous airborne mission systems interpretation shows normal sinus rhythm heart rate 80s, no ectopy, normal, my interpretation. Pulse oximetry monitor interpretation shows normal oxygenation 95% room air, normal, my interpretation. EKG/XRAY/CT/US/VASC/MRI EKG : Additional Comment [facility] Test Date: 2025-01-29 Test Time: 00:46:16 Pat Name: YOLANDA RINALDI Department: EMERGENCY ROOM Room: Gender: F Linux Support Engineer: : 1970 Requested By: ROCKY LEPE Order Number: [id number] Reading MD: Dr. Rocky Lepe Measurements Intervals [place] Rate: 82 P: 85 [place]: 131 QRS: 38 QRSD: 93 T: 17 QT: 382 QTc: 446 Interpretive Statements Sinus rhythm Left atrial enlargement Baseline wander in lead(s) V2 Electronically Signed On 01-29-2025 0:53:[address] Rocky Lepe Please click the below link to view image of tracing. EKG Date and Time:01/29/25 0046 Electronically Signed by: ROCKY LEPE MD Date and Time: 01/29/25 005 Chest X-Ray : Additional Comments CHEST RADIOGRAPH Indication: CP Technique: Single frontal view of the chest was obtained Comparison: CHEST,SINGLE VIEW on DOS: 06/17/22, CHEST,SINGLE VIEW on DOS: 05/14/21 FINDINGS: Lines and Tubes: None Lungs: No focal consolidation. Pleura: No effusion or pneumothorax. Cardiomediastinal contours: Unremarkable Bones: No acute osseous abnormality. IMPRESSION: 1. No acute cardiopulmonary disease. Electronically Signed by:SERGIO CANTU MD Date & Time: 01/29/25 0110 Heart Score: Heart Score Response (Comments) Value History Slightly Suspicious 0 EKG Normal 0 Age 45-64 1 Risk Factors 1 or 2 risk factors 1 Troponin Normal limit 0 Total 2 Medical Decision Making Additional info obtained from: old records Differential Dx:Considerations: Include: angina, aortic dissection, chest wall pain, cholelithiasis, CHF, costochondritis, esophageal reflux/spasm, gastritis, myocardial infarction, pericarditis, pleuritis, pancreatitis, other Departure Time of Disposition: 03:32 Disposition: 01 HOME / SELF CARE / HOMELESS Impression: Primary Impression: Chest pain due to GERD Condition: Stable Discharge Instructions: Abdominal Pain, Adult, [id number] Referrals: NO PRIMARY CARE PROVIDER (PCP) Education Educated: Patient Educated regarding: diagnosis, treatment, prognosis, need for follow up Signature Scribe Signature: Scribed for Rocky Lepe MD by Glory Sue . 01/29/25 03:12 Attestation: The note accurately reflects work and decisions made by me.Rocky Lepe MD 01/29/25 02:46 ROCKY LEPE MD Jan 29, 2025 02:46 GLORY OJEDA Jan 29, 2025 03:13
[2025-01-29] MEDS: mag hydrox/Alum hydrox/simeth 30ml oral suspension PO ONE (03:21)
[2025-01-29] MEDS: LIDOcaine 2% Viscous 15ml cup MM ONE (03:21)
[2025-01-29 03:23] VITALS: BP 104/62; PULSE 66; RESP 16; O2SAT 100
[2025-01-29 03:50] VITALS: TEMP 97.8
[2025-01-29] MEDS: normal saline 1000ML IV soln IVB ONE (03:53)
== END 2025-01-29 03:57 | disposition home or self-care (01) ==
LOC: ER 00:45
DX: K21.9 Gastro-esophageal reflux disease without esophagitis (principal); R07.89 Other chest pain; R53.83 Other fatigue; J45.909 Unspecified asthma, uncomplicated; I10 Essential (primary) hypertension; R06.02 Shortness of breath; F10.90 Alcohol use, unspecified, uncomplicated; Z88.1 Allergy status to other antibiotic agents; Z90.49 Acquired absence of other specified parts of digestive tract; Z98.84 Bariatric surgery status; Y90.9 Presence of alcohol in blood, level not specified
CPT/HCPCS: 36415; 71045; 80048; 80076; 83880; 84484; 85025; 93005; 96365; 99285; J2470; J7030